=== PATIENT | female | born 1950 | race Hispanic/Latino ===

== ENCOUNTER 2024-01-31 05:02 | Observation (INO) | payer MEDICARE ==
[2024-01-26 11:37] LABS: BASOPHILS # (AUTO) 0.03 K/uL (0.00-0.20); BASOPHILS % (AUTO) 0.5 % (0.0-5.0); EOSINOPHILS # (AUTO) 0.05 K/uL (0.00-0.70); EOSINOPHILS % (AUTO) 0.9 % (0.0-8.0); HEMATOCRIT 39.9 % (36-48); IMMATURE GRANULOCYTE ABSOLUTE 0.02 K/uL (0-1); LYMPHOCYTES # (AUTO) 1.9 K/uL (1.0-4.8); LYMPHOCYTES % (AUTO) 34.4 % (21.0-51.0); MEAN CORPUSCULAR HEMOGLOBIN 31.4 pg (27.0-33.0); MEAN CORPUSCULAR HGB CONC 34.8 g/dL (32.0-36.0); MEAN CORPUSCULAR VOLUME 90.1 fL (79-99); MONOCYTES # (AUTO) 0.5 K/uL (0.1-1.0); MONOCYTES % (AUTO) 9.1 % (3.0-13.0); NEUTROPHILS # (AUTO) 3.1 K/uL (1.8-7.7); NEUTROPHILS % (AUTO) 54.7 % (40.0-77.0); PLATELET COUNT (AUTO) 204 K/uL (130-400); RED BLOOD CELL COUNT(AUTO) 4.43 MIL/uL (4.00-5.50); RED CELL DISTRIBUTION WIDTH 12.2 % (11.0-15.5); WHITE BLOOD COUNT (AUTO) 5.6 K/uL (4.8-10.8)
[2024-01-26 11:50] LABS: INR 1.05 (0.85-1.15); PROTHROMBIN TIME 12.3 SEC (9.6-11.6)
[2024-01-26 11:51] LABS: PARTIAL THROMBOPLASTIN TIME 33.5 SEC (26.3-35.5)
[2024-01-26 11:53] LABS: ALBUMIN 3.9 g/dL (3.5-5.0); BILIRUBIN,TOTAL 0.8 mg/dL (0.2-1.0); CREATININE 0.5 mg/dL (0.5-1.0); POTASSIUM 4.4 mmol/L (3.5-5.1); TOTAL PROTEIN, SERUM 7.6 g/dL (6.0-8.3)
[2024-01-26 12:08] VITALS: BP 151/80; PULSE 57; RESP 16
[2024-01-31] VITALS (28 sets, daily range): BP systolic 118–156; BP diastolic 55–85; PULSE 57–74; RESP 14–21; O2SAT 100
[~2024-01-31] VITALS: Ht 154.9 cm; Wt 58.2 kg
[~2024-01-31 05:02] MED LIST: CYCL5TAB PO; DONE10TA43 PO; DULO30CA52 PO; GABA-529 PO; LEVO100C4 PO; LISI10TA24 PO; PREDAOS OD; TRAM50TA4 PO
[2024-01-31] MEDS: LACTATED RINGERS 1000ML 1,000 ML IV ONE (05:53)
[2024-01-31] MEDS: CLINDAMYCIN IVPB 900MG/50ML 50 ML IV ONE ×2 (05:54→15:12)
[2024-01-31] MEDS ORDERED: MIDAZOLAM HCL 1 MG/ML 2ML VIAL ONE (07:19)
[2024-01-31] MEDS: TRANEXAMIC ACID 1000MG/10ML ONE (07:44)
[2024-01-31] MEDS: CEFAZOLIN SODIUM 1 GM VIAL ONE (07:46)
[2024-01-31] MEDS: 0.9%NACL 48.45 ML, ROPIVACAINE 0.5% 49.25ML, EPINEPH 0.5MG KETOROLAC 30MG,CLONIDINE 80MCG IV PRN (07:46)
[2024-01-31] MEDS: GENTAMICIN SULFATE 80 MG/2 ML VIAL ONE (07:46)
[2024-01-31] MEDS ORDERED: FENTANYL CITRATE PF 50 MCG/1 ML 2ML VIAL ONE (08:24)
[2024-01-31] MEDS ORDERED: ACETAMINOPHEN 325 MG TAB PO SCH (16:30)
[2024-01-31] MEDS ORDERED: ACETAMINOPHEN 325 MG TAB PO PRN ×2 (16:30)
[2024-01-31] MEDS ORDERED: LACTULOSE 20 GM/30 ML UDCUP PO PRN (16:30)
[2024-01-31] MEDS ORDERED: DIPHENHYDRAMINE HCL 25 MG CAPSULE PO SCH (16:30)
[2024-01-31] MEDS ORDERED: DIPHENHYDRAMINE HCL 25 MG CAPSULE PO PRN (16:30)
[2024-01-31] MEDS ORDERED: BENZOCAINE/MENTH/CETYLPYRD CL 1 EACH LOZENGE MM PRN (16:30)
[2024-01-31] MEDS ORDERED: DIPHENOXYLATE HCL/ATROPINE 2.5/0.025 MG TAB PO PRN (16:30)
[2024-01-31] MEDS ORDERED: ONDANSETRON 4MG INJ IVP PRN (16:30)
[2024-01-31] MEDS: 0.9%NACL 1000ML 1,000 ML IV SCH (16:30)
[2024-01-31] MEDS ORDERED: MAG/ALUM/SIMETH 30 ML UDCUP PO PRN (16:30)
[2024-01-31] MEDS: HYDROMORPH /0.9% NACL/PF PCA 50 ML IV PRN (17:52)
[2024-01-31] MEDS: CLINDAMYCIN IVPB 900MG/50ML IV SCH (22:14)
[2024-02-01 01:27] VITALS: BP 119/61; PULSE 94; RESP 18
[2024-02-01 03:55] LABS: HEMATOCRIT 33.7 % (36-48); MEAN CORPUSCULAR HEMOGLOBIN 31.6 pg (27.0-33.0); MEAN CORPUSCULAR HGB CONC 33.8 g/dL (32.0-36.0); MEAN CORPUSCULAR VOLUME 93.4 fL (79-99); RED BLOOD CELL COUNT(AUTO) 3.61 MIL/uL (4.00-5.50); RED CELL DISTRIBUTION WIDTH 12.1 % (11.0-15.5); WHITE BLOOD COUNT (AUTO) 7.1 K/uL (4.8-10.8)
[2024-02-01 04:06] VITALS: BP 135/79; PULSE 90; RESP 17
[2024-02-01 04:18] LABS: CREATININE 0.5 mg/dL (0.5-1.0); POTASSIUM 3.6 mmol/L (3.5-5.1)
[2024-02-01 08:00] VITALS: BP 119/63; PULSE 85; RESP 18; O2SAT 100
[2024-02-01] MEDS: RIVAROXABAN 10 MG TABLET PO SCH (11:17)
[2024-02-01 12:00] VITALS: BP 114/54; PULSE 84; RESP 20
[2024-02-01] MEDS: TRAMADOL HCL 50 MG TABLET PO PRN (13:43)
[2024-02-01] MEDS ORDERED: RIVA10TA PO (15:38)
[2024-02-01 16:00] VITALS: BP 119/61; PULSE 92; RESP 20
== END 2024-02-01 17:00 | disposition home or self-care (01) ==
LOC: DAH 05:02 → DAHIP 05:03 → DAH 05:03 → 4DH 15:50
PROVIDERS: ADMIT Orthopaedic Surgery; ATTEND Orthopaedic Surgery
DX: M17.12 Unilateral primary osteoarthritis, left knee (principal); F32.A Depression, unspecified; E03.9 Hypothyroidism, unspecified; F03.93 Unspecified dementia, unspecified severity, with mood disturbance; I10 Essential (primary) hypertension; H40.9 Unspecified glaucoma; E78.00 Pure hypercholesterolemia, unspecified; Z86.2 Personal history of diseases of the blood and blood-forming organs and certain disorders involving the immune mechanism; Z88.0 Allergy status to penicillin
CPT/HCPCS: 80053; 85025; 85610; 85730; 36415 ×2; 71046; 93005; 87641; 27447; 96365; 96366 ×5; 96368; 97161; 97012; 97116 ×2; 80048; 85027; 97530; A6260; G0378 ×23; A4510; A4663; J7120 ×2; A4215 ×2; A4649 ×4; J3010; J0690; J3490 ×5; J0171; J1580; J2250; J1885; J2795; J0735; A6223; C1763 ×2; C1776; A5120; A4223; A4222; A4221; A4216; A6450; J7030

== ENCOUNTER 2024-02-04 02:14 | Observation (INO) | payer MEDICARE ==
[~2024-02-04] VITALS: Ht 157.5 cm; Wt 66.5 kg
[~2024-02-04 02:14] MED LIST changes: +RIVA10TA PO
[2024-02-04] MEDS: METOCLOPRAMIDE 10 MG/2 ML VIAL IVP ONE (03:56)
[2024-02-04] MEDS: FAMOTIDINE 20MG VIAL IV ONE (03:56)
[2024-02-04] MEDS: KETOROLAC 30MG VIAL (30MG/ML) IVP ONE (03:57)
[2024-02-04] MEDS: CLINDAMYCIN IVPB 600MG/50ML 50 ML IV SCH (03:57)
[2024-02-04] MEDS: 0.9%NACL 1000ML 1,503 ML IV ONE (03:57)
[2024-02-04 04:00] LABS: BASOPHILS # (AUTO) 0.04 K/uL (0.00-0.20); BASOPHILS % (AUTO) 0.5 % (0.0-5.0); EOSINOPHILS # (AUTO) 0.13 K/uL (0.00-0.70); EOSINOPHILS % (AUTO) 1.5 % (0.0-8.0); HEMATOCRIT 31.8 % (36-48); IMMATURE GRANULOCYTE ABSOLUTE 0.07 K/uL (0-1); LYMPHOCYTES # (AUTO) 1.3 K/uL (1.0-4.8); LYMPHOCYTES % (AUTO) 15.1 % (21.0-51.0); MEAN CORPUSCULAR HEMOGLOBIN 31.3 pg (27.0-33.0); MEAN CORPUSCULAR HGB CONC 33.3 g/dL (32.0-36.0); MEAN CORPUSCULAR VOLUME 93.8 fL (79-99); MONOCYTES % (AUTO) 12.1 % (3.0-13.0); PLATELET COUNT (AUTO) 226 K/uL (130-400); RED BLOOD CELL COUNT(AUTO) 3.39 MIL/uL (4.00-5.50); WHITE BLOOD COUNT (AUTO) 8.6 K/uL (4.8-10.8)
[2024-02-04 04:12] LABS: CREATININE 0.6 mg/dL (0.5-1.0); POTASSIUM 3.3 mmol/L (3.5-5.1)
[2024-02-04 04:16] LABS: BILIRUBIN,TOTAL 0.6 mg/dL (0.2-1.0)
[2024-02-04 04:22] LABS: ADD UA MICROSCOPIC YES; APPEARANCE,URINE CLEAR (CLEAR); BILIRUBIN,URINE NEGATIVE (NEGATIVE); COLOR,URINE YELLOW (YELLOW); GLUCOSE, URINE (UA) 30 mg/dL (NEGATIVE); KETONES,URINE NEGATIVE (NEGATIVE); LEUKOCYTE ESTERASE ,URINE 75 Leu/uL (NEGATIVE); NITRATE,URINE NEGATIVE (NEGATIVE); OCCULT BLOOD,URINE MODERATE (NEGATIVE); PROTEIN,URINE NEGATIVE (NEGATIVE)
[2024-02-04 04:26] LABS: BACTERIA,URINE FEW /HPF (None Seen); CALCIUM OXALATE CRYSTALS,UR MOD /LPF (None Seen); MUCUS,URINE RARE LPF (None Seen); SQUAMOUS EPITHELIAL CELL,UR RARE /HPF (0-2)
[2024-02-04] MEDS: VANCOMYCIN KIT 1 GM/250 ML IV.KIT IV ONE (04:27)
[2024-02-04] MEDS: MORPHINE 2 MG SYG IVP ONE (04:57)
[2024-02-04] MEDS ORDERED: MORPHINE 2 MG SYG IV PRN (06:00)
[2024-02-04] MEDS ORDERED: ACETAMINOPHEN 325 MG TAB PO PRN ×2 (06:00)
[2024-02-04] MEDS ORDERED: ONDANSETRON 4MG INJ IV PRN (06:00)
[2024-02-04] MEDS ORDERED: CLINDAMYCIN IVPB 600MG/50ML 50 ML IV SCH (06:00)
[2024-02-04] MEDS ORDERED: VANCOMYCIN PROTOCOL PER PHARMACY IV SCH (07:00)
[2024-02-04] MEDS: 0.9%NACL 1000ML 1,000 ML IV SCH (07:02)
[2024-02-04] MEDS: CEFEPIME HCL 1 GM VIAL IVPB SCH (08:19)
[2024-02-04] MEDS: FAMOTIDINE 20MG VIAL IV SCH (08:19)
[2024-02-04] MEDS ORDERED: POTASSIUM CHLORIDE 20MEQ/100ML 100 ML IV PRN (09:00)
[2024-02-04] MEDS ORDERED: POTASSIUM CHLORIDE 10% ELIXIR 20 MEQ/15 ML UDCUP PO PRN (09:00)
[2024-02-04] MEDS ORDERED: MAGNESIUM 2GM PREMIX 50ML 50 ML IV PRN (09:00)
[2024-02-04] MEDS: KCL 20 MEQ ERTAB PO PRN (09:45)
[2024-02-04] MEDS ORDERED: MORPHINE PCA 50MG/50ML NS IV SCH (11:00)
[2024-02-04] MEDS ORDERED: LACTATED RINGERS 1000ML 1,000 ML IV SCH (11:00)
[2024-02-04 11:21] LABS: INR <= 0.93 (0.85-1.15)
[2024-02-04] MEDS ORDERED: CYCLOBENZAPRINE HCL 10 MG TABLET PO PRN (12:00)
[2024-02-04] MEDS ORDERED: TRAMADOL HCL 50 MG TABLET PO PRN (12:00)
[2024-02-04] MEDS: PREDNISOLONE 1% DROPS OD SCH ×2 (12:10→19:44)
[2024-02-04] MEDS: GABAPENTIN 100 MG CAPSULE PO SCH (13:09)
[2024-02-04] MEDS: ACETAMINOPHEN WITH CODEINE 1 TAB TAB PO PRN (14:28)
[2024-02-04 22:20] VITALS: BP 140/68; PULSE 73; RESP 18
[2024-02-04 23:02] VITALS: O2SAT 100
[2024-02-05 03:32] VITALS: BP 132/54; PULSE 94; RESP 16
[2024-02-05 03:43] LABS: HEMATOCRIT 27.8 % (36-48); MEAN CORPUSCULAR HEMOGLOBIN 31.9 pg (27.0-33.0); MEAN CORPUSCULAR HGB CONC 34.2 g/dL (32.0-36.0); MEAN CORPUSCULAR VOLUME 93.3 fL (79-99); RED BLOOD CELL COUNT(AUTO) 2.98 MIL/uL (4.00-5.50); RED CELL DISTRIBUTION WIDTH 12.1 % (11.0-15.5)
[2024-02-05 03:55] LABS: CREATININE 0.5 mg/dL (0.5-1.0); MAGNESIUM 1.9 mg/dL (1.80-2.40); POTASSIUM 4.7 mmol/L (3.5-5.1)
[2024-02-05] MEDS ORDERED: VANCOMYCIN 1G/250ML KIT 250 ML IV SCH (06:00)
[2024-02-05] MEDS: LEVOTHYROXINE 100 MCG TABLET PO SCH (06:44)
[2024-02-05 08:00] VITALS: BP 121/60; PULSE 77; RESP 15; O2SAT 100
[2024-02-05] MEDS: RIVAROXABAN 10 MG TABLET PO SCH (10:04)
[2024-02-05] MEDS: DULOXETINE HCL 30 MG CAP PO SCH (10:04)
[2024-02-05] MEDS: LISINOPRIL 10 MG TABLET PO SCH (10:05)
[2024-02-05] MEDS: DONEPEZIL HCL 5 MG TAB PO SCH (10:06)
[2024-02-05] MEDS: ACETAMINOPHEN WITH CODEINE 1 TAB TAB PO PRN (10:08)
[2024-02-05 12:00] VITALS: BP 141/69; PULSE 82; RESP 18
== END 2024-02-05 17:58 | disposition home or self-care (01) ==
LOC: EDH 02:14 → INTOOBSV 06:00 → EDHIP 06:00 → 4BH 21:58
PROVIDERS: ADMIT Orthopaedic Surgery; ATTEND Orthopaedic Surgery
DX: M25.062 Hemarthrosis, left knee (principal); M13.862 Other specified arthritis, left knee; M81.0 Age-related osteoporosis without current pathological fracture; M79.662 Pain in left lower leg; E05.90 Thyrotoxicosis, unspecified without thyrotoxic crisis or storm; Z90.710 Acquired absence of both cervix and uterus; Z88.0 Allergy status to penicillin; Z79.899 Other long term (current) drug therapy; Z90.49 Acquired absence of other specified parts of digestive tract; Z96.652 Presence of left artificial knee joint
CPT/HCPCS: 76882; 96376; 96361; 96365; 96375; 99285; 80053; 85025; 85610; 85651; 87040 ×2; 87077; 87088; 87186; 83605 ×2; 81001; 36415 ×2; 93971; 83735; 80048; 85027; 97161; 97116; 97530 ×3; J3490 ×3; J2270; J7510 ×3; J1885; J3370; J0692; J2765; G0378 ×4